=== PATIENT | female | born 1990 | race Native Hawaiian/Other Pacific Islander ===

== ENCOUNTER 2023-01-11 17:02 | Emergency (ER) | payer BC ==
[~2023-01-11] VITALS: Ht 165.1 cm; Wt 77.1 kg
[2023-01-11] MEDS ORDERED: KETOROLAC TROMETHAMINE INJ 30 MG/ML VIAL IV ONE (17:30)
[2023-01-11 17:54] LABS: BASOPHILS % (AUTO) 0.7 % (0.0-2.0); EOSINOPHILS % (AUTO) 5.6 % (0.0-6.0); HEMATOCRIT 38 % (33-45); HEMOGLOBIN 11.6 g/dL (11.5-14.8); MEAN CORPUSCULAR HGB CONC 31 g/dl (31.0-36.0); MEAN CORPUSCULAR VOLUME 71 fL (82-100); MONOCYTES # (AUTO) 0.6 K/uL (0.1-1.30); MONOCYTES % (AUTO) 8.2 % (2.0-12.0); NEUTROPHILS # (AUTO) 3.1 K/uL (1.8-8.9); NEUTROPHILS % (AUTO) 43.5 % (43.0-81.0); PLATELET COUNT (AUTO) 285 K/uL (150-450); RED BLOOD CELL COUNT(AUTO) 5.38 MIL/uL (4.0-5.2); WHITE BLOOD COUNT (AUTO) 7.1 K/uL (4.3-11.0)
[2023-01-11] MEDS ORDERED: KETOROLAC TROMETHAMINE 15 MG/ML VIAL ONE (18:11)
--- NOTE | 2023-01-11 18:17 | NUR ---
PT IN BED 6 C/O FLANK PAIN 04/20 ROOM AIR 99% O2SAT. AMBULATORY. BLOOD DRAWN, IV LINE STARTED LEFT 20G NO S/S OF INFILTRATION. WAIVER SIGNED DENIES POSSIBILITY OF . TORADOL GIVEN
[2023-01-11 18:56] LABS: CALCIUM, SERUM 8.9 mg/dL (8.5-10.1); CREATININE 0.8 mg/dL (0.6-1.3); POTASSIUM 4.1 mmol/L (3.5-5.1)
[2023-01-11 19:00] LABS: ALBUMIN 3.7 g/dL (3.4-5.0); BILIRUBIN,DIRECT 0.1 mg/dL (0.0-0.2); BILIRUBIN,TOTAL 0.2 mg/dL (0.2-1.0); TOTAL PROTEIN, SERUM 7.9 g/dL (6.4-8.2)
[2023-01-11] MEDS ORDERED: CYCL5TAB PO (19:49)
[2023-01-11 20:00] VITALS: BP 123/75
[2023-01-11 21:09] LABS: BAND % (MANUAL) 2 % (0.0-5.0); EOSINOPHILS % (MANUAL) 3 % (0-4); LYMPHOCYTES % (MANUAL) 49 % (16-48); MONOCYTES % (MANUAL) 3 % (0-11.0); NEUTROPHILS % (MANUAL) 43 (42-76)
== END 2023-01-11 20:01 | disposition home or self-care (01) ==
LOC: ER 17:19
DX: M54.9 Dorsalgia, unspecified (principal)
CPT/HCPCS: 99285; 74176; 96374; 85025; 80048; 83690; 80076; 36415; 84702; 85007; J1885